=== PATIENT | male | born 1950 | race African-American/Black ===

== ENCOUNTER 2022-01-09 13:57 | Emergency (ER) | payer MEDICARE ==
[~2022-01-09] VITALS: Ht 177.8 cm; Wt 69.0 kg
[~2022-01-09 13:57] MED LIST: DOCU-138 PO; HYDR-4001 PO; HYDR-4009 PO; MAGN400T26 PO; METO5TAB2 PO; SODI650T PO
[2022-01-09 14:45] LABS: BASOPHILS % 0.7 % (0.0-2.0); EOSINOPHILS % 3.6 % (0.0-5.0); HEMATOCRIT. 34.7 % (42.0-52.0); HEMOGLOBIN. 11.8 g/dL (14.0-18.0); LYMPHOCYTES % 15.8 % (20.0-50.0); MEAN CORPUSCULAR HEMOGLOBIN 29.1 pg (28.0-32.0); MEAN CORPUSCULAR VOLUME 85.6 fL (80.0-94.0); MEAN PLATELET VOLUME 8.5 fl (7.4-10.4); MONOCYTES % 9.1 % (2.0-8.0); NEUTROPHILS % 70.8 % (40.0-76.0); PLATELET 286 x1000/uL (130-400); RED BLOOD CELL COUNT 4.06 mill/uL (4.7-6.1); RED CELL DISTRIBUTION WIDTH 16.7 % (11.6-14.6)
[2022-01-09 14:51] LABS: CHLORIDE 101 mEq/L (98-107)
[2022-01-10 02:50] VITALS: BP 132/76
== END 2022-01-11 03:23 | disposition home or self-care (01) ==
LOC: ER 13:57
DX: T82.838A Hemorrhage due to vascular prosthetic devices, implants and grafts, initial encounter (principal); Y82.8 Other medical devices associated with adverse incidents; Y92.89 Other specified places as the place of occurrence of the external cause; I12.0 Hypertensive chronic kidney disease with stage 5 chronic kidney disease or end stage renal disease; E11.22 Type 2 diabetes mellitus with diabetic chronic kidney disease; N18.6 End stage renal disease; Z99.2 Dependence on renal dialysis; Z89.612 Acquired absence of left leg above knee; Z79.899 Other long term (current) drug therapy
CPT/HCPCS: 36415; 80053; 85025; 99285

== ENCOUNTER 2022-03-24 21:58 | Emergency (ER) | payer MEDICARE ==
[~2022-03-24] VITALS: Ht 167.6 cm; Wt 83.9 kg
[2022-03-24] MEDS ORDERED: ASPIRIN 325MG EC TABLET PO ONE (23:30)
[2022-03-24 23:46] LABS: BASOPHILS % 0.7 % (0.0-2.0); CHLORIDE 101 mEq/L (98-107); EOSINOPHILS % 4.1 % (0.0-5.0); HEMATOCRIT. 35.1 % (42.0-52.0); LYMPHOCYTES % 16.1 % (20.0-50.0); MEAN CORPUSCULAR HEMOGLOBIN 29.6 pg (28.0-32.0); MONOCYTES % 9.6 % (2.0-8.0); NEUTROPHILS % 69.5 % (40.0-76.0); PLATELET 257 x1000/uL (130-400); RED BLOOD CELL COUNT 4.04 mill/uL (4.7-6.1); RED CELL DISTRIBUTION WIDTH 16.3 % (11.6-14.6)
[2022-03-25] MEDS ORDERED: HEPARIN 5000 UNITS/ML VIAL IV NR (02:30)
[2022-03-25] MEDS ORDERED: SPIRONOLACTONE 50MG TABLET PO ONE (05:45)
[2022-03-25] MEDS ORDERED: HEPARIN 25,000 UNITS PREMIX 250 ML IV SCH ×2 (07:15→10:00)
[2022-03-25 08:46] LABS: INR 1.2; PARTIAL THROMBOPLASTIN TIME 68.9 sec (23.4-31.0); PROTHROMBIN TIME 12.8 sec (9.6-11.0)
[2022-03-25] MEDS ORDERED: IOHEXOL-350 100 ML BOTTLE ONE (09:16)
[2022-03-25] MEDS ORDERED: HEPARIN 60 UNITS/KG BOLUS IV SCH (10:00)
[2022-03-25 11:15] VITALS: BP 155/72
[2022-03-25 11:17] LABS: BASOPHILS % 0.9 % (0.0-2.0); EOSINOPHILS % 3.9 % (0.0-5.0); HEMATOCRIT. 35.3 % (42.0-52.0); HEMOGLOBIN. 11.9 g/dL (14.0-18.0); LYMPHOCYTES % 17.2 % (20.0-50.0); MEAN CORPUSCULAR HEMOGLOBIN 29.2 pg (28.0-32.0); MEAN CORPUSCULAR VOLUME 86.6 fL (80.0-94.0); MEAN PLATELET VOLUME 8.6 fl (7.4-10.4); MONOCYTES % 8.7 % (2.0-8.0); NEUTROPHILS % 69.3 % (40.0-76.0); PLATELET 263 x1000/uL (130-400); RED BLOOD CELL COUNT 4.08 mill/uL (4.7-6.1); RED CELL DISTRIBUTION WIDTH 16.3 % (11.6-14.6)
[2022-03-25] MEDS ORDERED: HEPARIN BOLUS PRN aPTT 30-44 IV (15:00)
[2022-03-25] MEDS ORDERED: HEPARIN BOLUS PRN aPTT <30 IV (15:00)
== END 2022-03-25 11:17 | disposition short-term general hospital (02) ==
LOC: ER 21:58 → CANBEDREQ 03-26 07:56
DX: E11.52 Type 2 diabetes mellitus with diabetic peripheral angiopathy with gangrene (principal); I13.2 Hypertensive heart and chronic kidney disease with heart failure and with stage 5 chronic kidney disease, or end stage renal disease; E11.22 Type 2 diabetes mellitus with diabetic chronic kidney disease; I96 Gangrene, not elsewhere classified; N18.6 End stage renal disease; Z99.2 Dependence on renal dialysis; Z79.899 Other long term (current) drug therapy; Z20.822 Contact with and (suspected) exposure to COVID-19
CPT/HCPCS: 36415; 73706; 80048; 80053; 82962; 85025; 85610; 85730; 87426; 96374; 99285; C9803; J1644; Q9967